=== PATIENT | male | born 1970 | race Caucasian/White ===

== ENCOUNTER 2018-06-11 12:11 | Emergency (ER) | payer MEDICAID ==
[~2018-06-11] VITALS: Ht 177.8 cm; Wt 72.6 kg
[2018-06-11 12:18] VITALS: Ht 177.8 cm; Wt 72.6 kg
[2018-06-11 12:59] LABS: microscopic required? NO
[2018-06-11 13:05] LABS: BASOPHIL % 0.5 % (0-2); PLATELET COUNT 268 x10^3mcL (130-400); RED CELL DISTRIBUTION WIDTH 14.2 % (11.5-14.5)
[2018-06-11 13:07] LABS: urine erythrocyte NEGATIVE (NEGATIVE)
[2018-06-11 13:15] LABS: AMPHETAMINE QUAL UR NONE DETECTED (See below)
[2018-06-11 13:29] LABS: CALCIUM 8.6 mg/dL (8.5-10.1); CARBON DIOXIDE 23.4 mmol/L (21-32); CHLORIDE SERUM 104 mmol/L (98-107); CREATININE SERUM 0.8 mg/dL (0.7-1.3); GFR1 > 60 mL/min; GLUCOSE SERUM 88 mg/dL (74-106); POTASSIUM SERUM 3.5 mmol/L (3.5-5.1); SODIUM SERUM 141 mmol/L (136-145)
[2018-06-11 13:36] LABS: ALBUMIN 4.1 g/dL (3.4-5.0); ALKALINE PHOSPHATASE 109 U/L (46-116); ALT/SGPT 67 U/L (16-63); AST/SGOT 39 U/L (15-37); BILIRUBIN TOTAL 0.1 mg/dL (0.20-1.00); TOTAL PROTEIN, SERUM 7.7 g/dL (6.4-8.2)
[2018-06-11 14:41] VITALS: BP 138/73
== END 2018-06-11 14:41 | disposition home or self-care (01) ==
LOC: ED 12:11
PROVIDERS: Emergency Medicine
DX: F31.9 Bipolar disorder, unspecified (principal); F10.129 Alcohol abuse with intoxication, unspecified; M25.562 Pain in left knee; Z88.8 Allergy status to other drugs, medicaments and biological substances
CPT/HCPCS: 36415; G0480

== ENCOUNTER 2018-06-17 07:21 | Inpatient (IN) | payer MEDICAID ==
[~2018-06-17] VITALS: Ht 175.3 cm; Wt 85.8 kg
[2018-06-17 07:23] VITALS: Ht 175.3 cm; Wt 85.8 kg
--- NOTE | 2018-06-17 07:27 | NUR ---
PT HAS POS S.I. WITH PLAN. PLACED IN DIRECT SUPERVISION OF NURSES STATION AND REPORT GIVEN TO PRIMARY NURSE FOR CONTINUED SURVEILANCE
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
--- NOTE | 2018-06-17 07:53 | NUR ---
PT REFUSED BLOOD DRAWN AND STATE, " I'M NOT REQUIRE TO HAVE BLOOD DRAWNS". EDUCATED PT THE IMPORTANCE OF BLOOD DRAWN, PT STILL REFUSES.
[2018-06-17 08:04] LABS: microscopic required? NO
[2018-06-17 08:20] LABS: UA SPECIFIC GRAVITY <=1.005 (1.005-1.035); urine erythrocyte NEGATIVE (NEGATIVE)
--- NOTE | 2018-06-17 08:20 | NUR ---
PLACED PERSONAL BELONGINGS IN THE RADIO ROOM. GAVE PATIENT A BLANKET TO IMPROVE PATIENT COMFORT. PATIENT IS CURRENTLY RESTING AT BEDSIDE IN NAD
--- NOTE | 2018-06-17 08:41 | NUR ---
PT REFUSED AMONIA, ALCOHOL, TYLENOL, SALICYLATE, VALPROIC ACID, CMP LAB DRAWNS.
[2018-06-17 08:43] LABS: AMPHETAMINE QUAL UR NONE DETECTED (See below)
--- NOTE | 2018-06-17 09:36 | NUR ---
PT AGREE TO HAVE LAB DRAWN, POLO CINDER BLOCK MASON AT BEDSIDE.
[2018-06-17 09:42] LABS: BASOPHIL % 0.5 % (0-2); PLATELET COUNT 260 x10^3mcL (130-400); RED CELL DISTRIBUTION WIDTH 13.7 % (11.5-14.5)
[2018-06-17 09:45] LABS: CALCIUM 8.6 mg/dL (8.5-10.1); CARBON DIOXIDE 31.2 mmol/L (21-32); CHLORIDE SERUM 105 mmol/L (98-107); CREATININE SERUM 0.8 mg/dL (0.7-1.3); GFR1 > 60 mL/min; GLUCOSE SERUM 95 mg/dL (74-106); POTASSIUM SERUM 3.9 mmol/L (3.5-5.1); SODIUM SERUM 143 mmol/L (136-145)
[2018-06-17 09:49] LABS: ALBUMIN 3.5 g/dL (3.4-5.0); ALKALINE PHOSPHATASE 96 U/L (46-116); ALT/SGPT 33 U/L (16-63); AST/SGOT 28 U/L (15-37); BILIRUBIN TOTAL 0.11 mg/dL (0.20-1.00); TOTAL PROTEIN, SERUM 7.2 g/dL (6.4-8.2)
--- NOTE | 2018-06-17 10:10 | NUR ---
PT SITTING IN BED RESTING, EVEN CHEST RISE NO SIGNS OF SOB NOTED.
--- NOTE | 2018-06-17 11:17 | NUR ---
CAMMY ANGELES AT BEDSIDE TO ASSESS PT FOR 5150 CIRTIREA.
--- NOTE | 2018-06-17 11:45 | NUR ---
PER CAMMY RN PT WILL BE PLACE ON A 5150 HOLD.
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
--- NOTE | 2018-06-17 12:33 | NUR ---
PT FINALLY AGREE TO TAKE PANTS OFF AND WEAR A PAPER PANTS AND DOWN. NECKLACE AND WATCH IN BAG TO RADIO ROOM WITH PT LABEL ON IT. PT REFUSE TO GIVE WALLET AND BEANIE TO STAFF. WHEN ATTEMPTED TO CONVIENCE PT TO GIVE WALLET PT GOT VERBALLY AGITATED AND STARTED YELLING AT STAFF.
--- NOTE | 2018-06-17 12:38 | NUR ---
LUNCH TRAY PROVIDED TO PT. PLASTIC KNIFE IS TAKEN AWAY.
--- NOTE | 2018-06-17 13:20 | NUR ---
PT COMPLETED LUNCH TRAY AND TOLERATED WELL. NO S/S OF N/V/D. PT IS RESTING IN BED WITH NO SIGNS OF ACUTE DISTRESS.
--- NOTE | 2018-06-17 13:26 | NUR ---
PT REFUSE TO WEAR BLOOD PRESSURE CUFF, PULSE OX AND CARDIC MONITORS.
--- NOTE | 2018-06-17 14:47 | NUR ---
PROVIDED GIG CT REOPRT RESULTS VIA PHONE AND FAXED.
--- NOTE | 2018-06-17 15:07 | NUR ---
PT RESTING IN BED WITH EVEN CHEST RISE AND AROUSIBLE TO VERBAL STIMULIS.
--- NOTE | 2018-06-17 16:50 | NUR ---
PT PROVIDED 400ML OF CLEAR YELLOW URINE OUTPUT FROM URINAL.
--- NOTE | 2018-06-17 18:20 | NUR ---
PT. PROVIDED TUNA SANDWICH AND SODA. TOLERATING WELL.
--- NOTE | 2018-06-17 19:22 | NUR ---
ASSUMED CARE OF PT, PT IS SLEEPING
--- NOTE | 2018-06-18 00:25 | NUR ---
PT SLEEPING IN BED SNORING, PT IS ABLE TO MAKE ALL NEEDS KNOWN. PT WAS UP AMBULATING TO THE RESTROOM.
--- NOTE | 2018-06-18 02:01 | NUR ---
PT SLEEPING, NO DISTRESS NOTED.
--- NOTE | 2018-06-18 03:07 | NUR ---
PT SLEEPING IN BED, OBEYS ALL COMMANDS, DENIES PAIN
--- NOTE | 2018-06-18 05:29 | NUR ---
PT AWAKE AND AMBULATED TO THE RESTROOM.
--- NOTE | 2018-06-18 07:05 | NUR ---
RECEIVED REPORT FROM KEITH ANGELES. PT SLEEPING, CHEST RISE EASY AND REG; SKIN COLOR WNL.
--- NOTE | 2018-06-18 07:16 | NUR ---
PLEASANT AFFECT; DENIES THOUGHTS OF SUICIDE. AAOX4; BREATHING UNLABORED
--- NOTE | 2018-06-18 09:06 | NUR ---
PT. AMBULATED UP TO RESTROOM, AND BACK TO ROOM WITH STAFF.
--- NOTE | 2018-06-18 09:39 | NUR ---
PT ATE 100% BREAKFAST TRAY OF FOOD AND FLUIDS
--- NOTE | 2018-06-18 09:52 | NUR ---
REPORT GIVEN TO TAM ANGELES
--- NOTE | 2018-06-18 09:54 | NUR ---
RECEIVED REPORT FROM ANIKET ANGELES. AWAITING PT ARRIVAL TO FLOOR.
--- NOTE | 2018-06-18 10:05 | NUR ---
PT REFUSING IV ACCESS AT THIS TIME. PT REPORTING,"I HAVE NEVER HAD TO HAVE AN IV FOR A SUICIDE ATTEMPT, I DONT LIKE THEM, I HAVE SENSITIVE SKIN AND PLUS I DONT WANT ONE. IT IS NOT NECESSARY, ESPECIALLY IF YOUR NOT GOING TO USE IT."
[2018-06-18] MEDS ORDERED: LEXAPRO5 M1 PO (10:06)
[2018-06-18] MEDS ORDERED: DEPAKOTE500 MG PO (10:06)
[2018-06-18] MEDS ORDERED: NEURONTIN400 MG PO (10:06)
--- NOTE | 2018-06-18 10:20 | NUR ---
RECEIVED PATIENT FROM ED VIA GUERNEY ACCOMPANIED BY EMT CAMDEN. PT AMBULATED TO BED A ALONE. LIMP NOTED WHEN WALKING. NO IV ACCESS. PT REFUSING ACCESS. PT ON ROOM AIR. NO C/O SOB AND NO DISTRESS NOTED. PT C/O PAIN TO KNEES, BACK AND ANKLES 12/02. WILL MEDICATE. ALL QUESTIONS AND CONCERNS ADDRESSED.
--- NOTE | 2018-06-18 10:26 | NUR ---
No update from contacted facilities at this time. will continue to search for placement throughout shift. will update unit when new info is recieved.
[2018-06-18 11:01] VITALS: BP 126/77
--- NOTE | 2018-06-18 11:27 | NUR ---
SPOKE WITH BECKY ABOUT PT MEDICATIONS AND PTS REQUEST FOR SHOWER AND PAIN MEDICATION. AWAITING ORDERS.
--- NOTE | 2018-06-18 11:30 | NUR ---
[employer] SERVICES SUPERVISOR BECKY IN TO SEE AND ASSESS PATIENT.
--- NOTE | 2018-06-18 12:43 | NUR ---
SPOKE WITH GUS PENA ABOUT PT ASKING FOR HIS DEPAKOTE EARLY HE HAS NOT HAD IT IN OVER 1 DAY. BECKY OK TO GIVE DOSE NOW.
--- NOTE | 2018-06-18 13:20 | NUR ---
GOT A CALL [facility] NAME MARTA [phone] THAT PATIENT IS ACCEPTED AT [facility] [id number] AT [facility] UNDER . TELEPHONE NO. TO GIVE REPORT [phone]. REPORT GIVEN TO KARTHIK TURCIOS IN CHARGE OF THE PATIENT.
--- NOTE | 2018-06-18 13:36 | NUR ---
IN TO ADMINISTER MEDICATION. (SEE eMAR)
--- NOTE | 2018-06-18 14:43 | NUR ---
REPORT CALLED TO [facility]. SPOKE TO FRANSISCO ANGELES. ALL QUESTIONS AND CONCERNS ADDRESSED. AWAITING TRANSPORTATION.
[2018-06-18 15:18] VITALS: BP 126/77
--- NOTE | 2018-06-18 15:50 | NUR ---
PT MADE AWARE WHAT FACILITY HE WOULD BE GOING TO AND BECAME AGITATED. TRANSPORTATION ARRIVED AND PT WAS UNWILLING TO GO. SECURITY WAS CALLED, CASE MANAGEMENT WAS CALLED, FILM TOUCH UP INSPECTOR WAS CALLED, [facility] WAS CALLED. AFTER NOTIFYING PT THAT [place] [employer] WOULD HAVE TO BE CALLED IF HE CONTINUES TO REFUSE, PT AGREED TO GO.
== END 2018-06-18 15:48 | DRG 756 ==
LOC: ED 07:21 → MU 06-18 09:12
PROVIDERS: Emergency Medicine; ADMIT Internal Medicine
DX: R45.851 Suicidal ideations (principal); F20.9 Schizophrenia, unspecified; F31.9 Bipolar disorder, unspecified; Z59.0 Homelessness
CPT/HCPCS: 99406; G0480